=== PATIENT | female | born 1990 | race Caucasian/White ===

== ENCOUNTER 2023-02-11 19:00 | Inpatient (IN) | payer BC ==
[2023-02-11 20:09] VITALS: BMI 38.9
[2023-02-11] MEDS ORDERED: Ondansetron PF 4 MG/2 ML Vial IVP PRN (20:16)
[2023-02-11] MEDS ORDERED: Diphenoxylate HCl/Atropine Tablet PO PRN (20:16)
[2023-02-11] MEDS ORDERED: Zolpidem Tartrate 5 MG TAB PO PRN (20:16)
[2023-02-11] MEDS ORDERED: Promethazine HCl 25 MG/ML VIAL IM PRN (20:16)
[2023-02-11] MEDS ORDERED: HYDROcodone/Acetaminophen 5/325 mg Tablet PO PRN (20:16)
[2023-02-11] MEDS ORDERED: Acetaminophen 500 MG TAB PO PRN (20:16)
[2023-02-11] MEDS ORDERED: Lidocaine 1% (PF) 30 ML VIAL SC PRN (20:16)
[2023-02-11] MEDS ORDERED: hydrALAZINE 20 MG/ML VIAL SLOW IVP PRN (20:16)
[2023-02-11] MEDS ORDERED: Misoprostol 200 MCG TAB PR PRN (20:16)
[2023-02-11] MEDS ORDERED: Ibuprofen 800 MG TAB PO PRN (20:16)
[2023-02-11] MEDS ORDERED: Methylergonovine 0.2 MG/ML VIAL IM PRN (20:16)
[2023-02-11] MEDS ORDERED: Carboprost 250 MCG/ML AMP IM PRN (20:16)
[2023-02-11] MEDS ORDERED: NS w/ Oxytocin 30 units 500 ML IV SCH ×2 (20:30)
[2023-02-11] MEDS ORDERED: Lactated Ringer's 1,000 ML IV SCH (20:30)
[2023-02-11 20:50] LABS: Hematocrit 32.2 % (34.9-44.5); Hemoglobin 9.8 g/dL (12.0-15.5); Mean Corpuscular HGB CONC 30.4 g/dL (32.0-36.0); Mean Corpuscular Hemoglobin 21.5 pg (27.0-33.0); Mean Corpuscular Volume 70.6 fl (81.6-98.3); Platelet Count 242 10x3/uL (150-450); RBC Distribution Width 19.2 % (11.5-14.5); Red Blood Cell (RBC) Count 4.56 10x6/uL (3.90-5.03); White Blood Cell (WBC) Count 9.8 10x3/uL (3.5-10.5)
[2023-02-11 21:15] LABS: HBSAg Index 0.15 S/CO (0-0.99); Hep B Surf Ag - L&D Non-Reactive S/CO (NonReactive)
[2023-02-11 21:16] LABS: Syphilis Antibody Nonreactive (Nonreactive); Syphilis Antibody Index 0.07 S/CO (<1.00 Non-Reactive)
[2023-02-11] MEDS: Misoprostol 100 MCG TAB VAG SCH (21:40)
[2023-02-12] MEDS: Misoprostol 100 MCG TAB VAG SCH ×3 (01:53→13:38)
[2023-02-12] MEDS: fentaNYL 50 mcg/mL 1 mL Vial SLOW IVP PRN ×3 (09:46→15:18)
[2023-02-12] MEDS ORDERED: fentaNYL/Ropivacaine Epidural 100 ML ONE (17:01)
[2023-02-13] MEDS ORDERED: fentaNYL/Ropivacaine Epidural 100 ML ONE (01:50)
[2023-02-13] MEDS ORDERED: CEFAZOLIN 2 GM VIAL ONE (06:45)
[2023-02-13] MEDS ORDERED: Azithromycin 500 MG VIAL ONE (06:45)
[2023-02-13] MEDS ORDERED: Ondansetron PF 4 MG/2 ML Vial ONE (07:24)
[2023-02-13] MEDS ORDERED: ePHEDrine Sulfate 50 MG/10 ML VIAL ONE (07:24)
[2023-02-13] MEDS ORDERED: Chloroprocaine 3% PF 20 ML VIAL ONE (07:25)
[2023-02-13] MEDS ORDERED: Ketorolac Tromethamine 30 MG/ML VIAL ONE (07:25)
[2023-02-13] MEDS ORDERED: PHENYLEPHRINE-NS 100 MCG/ML 10 ML SYRINGE ONE (07:25)
[2023-02-13] MEDS ORDERED: Oxytocin 10 UNITS/ML VIAL ONE (07:25)
[2023-02-13] MEDS ORDERED: Dexamethasone 4 mg/ml Vial ONE (07:25)
[2023-02-13] MEDS ORDERED: Morphine PF 10 MG/10 ML VIAL ONE (07:26)
[2023-02-13] MEDS ORDERED: diphenhydrAMINE 50 MG/ML VIAL IVP PRN (07:33)
[2023-02-13] MEDS ORDERED: Ondansetron PF 4 MG/2 ML Vial IVP PRN ×2 (07:33→10:28)
[2023-02-13] MEDS ORDERED: Promethazine HCl 25 MG/ML VIAL IM PRN ×2 (07:33→10:28)
[2023-02-13] MEDS ORDERED: Fentanyl 100 MCG/2 ML VIAL SLOW IVP PRN (07:33)
[2023-02-13] MEDS ORDERED: Meperidine HCl/PF 25 MG/ML VIAL SLOW IVP PRN ×2 (07:33→13:30)
[2023-02-13] MEDS ORDERED: Naloxone HCl 0.4 mg/ml Vial IVP PRN ×2 (07:33)
[2023-02-13] MEDS ORDERED: Naloxone HCl 0.4 mg/ml Vial IV PRN (07:33)
[2023-02-13] MEDS ORDERED: Moisturizing Cream (Eucerin) 113 GM JAR TOP PRN (07:33)
[2023-02-13] MEDS ORDERED: Ondansetron HCl/PF 4 MG/2 ML Vial IVP PRN (07:33)
[2023-02-13] MEDS ORDERED: Promethazine HCl 25 MG SUPP PR PRN (07:33)
[2023-02-13] MEDS ORDERED: Ketorolac Tromethamine 30 MG/ML VIAL IVP SCH (07:45)
[2023-02-13] MEDS ORDERED: Communication Order-Pharmacy FS SCH (07:45)
[2023-02-13 08:38] LABS: pH (Cord, venous) 7.334 (7.250-7.350)
[2023-02-13] MEDS ORDERED: Meperidine HCl/PF 25 MG/ML VIAL ONE (10:04)
[2023-02-13] MEDS ORDERED: Bisacodyl 10 MG SUPP PR PRN (10:28)
[2023-02-13] MEDS ORDERED: diphenhydrAMINE 25 MG CAP PO PRN (10:28)
[2023-02-13] MEDS ORDERED: hydrALAZINE 20 MG/ML VIAL SLOW IVP PRN (10:28)
[2023-02-13] MEDS ORDERED: Acetaminophen 325 MG TAB PO PRN (10:28)
[2023-02-13] MEDS ORDERED: Lanolin Ointment 7 GM TUBE TOP PRN (10:28)
[2023-02-13] MEDS ORDERED: Boostrix 0.5 ML (Tdap) VIAL (>/=7 yrs of age) IM ONE (10:28)
[2023-02-13] MEDS ORDERED: Simethicone Chewable 80 MG TAB PO PRN (10:28)
[2023-02-13] MEDS ORDERED: Ferrous Sulfate 325 MG TAB PO SCH (10:45)
[2023-02-13] MEDS ORDERED: Docusate 100 MG CAP PO SCH (10:45)
[2023-02-13] MEDS ORDERED: Prenatal Vitamin 1 TAB PO SCH (10:45)
[2023-02-13] MEDS ORDERED: Meperidine HCl/PF 25 MG/ML VIAL SLOW IVP SCH (12:30)
[2023-02-13] MEDS: Misoprostol 100 MCG TAB VAG SCH ×2 (19:22→19:23)
[2023-02-13] MEDS ORDERED: HYDROcodone/Acetaminophen 5/325 mg Tablet PO PRN ×2 (20:00)
[2023-02-13] MEDS: Docusate 100 MG CAP PO SCH (20:57)
[2023-02-13] MEDS: Ferrous Sulfate 325 MG TAB PO SCH (20:58)
[2023-02-13] MEDS: Ketorolac Tromethamine 30 MG/ML VIAL IVP PRN (20:58)
[2023-02-14] MEDS: Ketorolac Tromethamine 30 MG/ML VIAL IVP PRN (02:55)
[2023-02-14 04:58] LABS: Hematocrit 28.6 % (34.9-44.5); Hemoglobin 8.5 g/dL (12.0-15.5); Mean Corpuscular HGB CONC 29.7 g/dL (32.0-36.0); Mean Corpuscular Hemoglobin 21.5 pg (27.0-33.0); Mean Corpuscular Volume 72.2 fl (81.6-98.3); Platelet Count 246 10x3/uL (150-450); RBC Distribution Width 18.9 % (11.5-14.5); Red Blood Cell (RBC) Count 3.96 10x6/uL (3.90-5.03); White Blood Cell (WBC) Count 14.1 10x3/uL (3.5-10.5)
[2023-02-14] MEDS: Prenatal Vitamin 1 TAB PO SCH (08:29)
[2023-02-14] MEDS: Docusate 100 MG CAP PO SCH ×2 (08:29→22:42)
[2023-02-14] MEDS: Ferrous Sulfate 325 MG TAB PO SCH ×2 (08:30→22:42)
[2023-02-14] MEDS: Ibuprofen 800 MG TAB PO SCH ×2 (16:39→22:42)
[2023-02-15] MEDS: Ibuprofen 800 MG TAB PO SCH (05:34)
[2023-02-15 06:44] VITALS: TEMP 98.6
[2023-02-15] MEDS: Docusate 100 MG CAP PO SCH (07:43)
[2023-02-15] MEDS: Prenatal Vitamin 1 TAB PO SCH (07:43)
[2023-02-15] MEDS: Ferrous Sulfate 325 MG TAB PO SCH (07:43)
[2023-02-15 08:17] VITALS: BP 125/80
== END 2023-02-15 10:52 | disposition home or self-care (01) | DRG 788 ==
LOC: CSHLD 19:22 → CSHPP 02-13 09:19 → CSHLD 02-13 09:20 → CSHPP 02-13 11:05
PROVIDERS: ADMIT Student in an Organized Health Care Education/Training Program; ATTEND Student in an Organized Health Care Education/Training Program
PROC: 10D00Z1 Extraction of Products of Conception, Low, Open Approach (ICD-10-PCS; principal; 2023-02-13)
DX: O42.02 Full-term premature rupture of membranes, onset of labor within 24 hours of rupture (principal); Z3A.39 39 weeks gestation of pregnancy; Z37.0 Single live birth; O99.52 Diseases of the respiratory system complicating childbirth; J45.909 Unspecified asthma, uncomplicated; O62.2 Other uterine inertia; O76 Abnormality in fetal heart rate and rhythm complicating labor and delivery
CPT/HCPCS: 36415; 51702; 82805; 85027; 86780; 86850; 86900; 86901; 87340; J1100; J1885; J2175; J2274; J2401; J2405; J2590; J3010